=== PATIENT | female | born 1940 | race Caucasian/White ===

== ENCOUNTER 2020-11-20 14:14 | Observation (INO) | payer MEDICARE, MEDICAID ==
[~2020-11-20] VITALS: Ht 152.4 cm; Wt 81.8 kg
[2020-11-20 15:08] LABS: COLLECTION METHOD CLEAN CATCH
[2020-11-20 15:18] LABS: MUCOUS Present /lpf; PH 5 (5-8); SQUAMOUS EPITHELIAL 0-2 /hpf; URINE APPEARANCE Clear; URINE BACTERIA None Seen /hpf; URINE BILIRUBIN Negative (NEGATIVE); URINE BLOOD 1+ (NEGATIVE); URINE COLOR Yellow; URINE GLUCOSE Negative (NEGATIVE); URINE KETONE Negative (NEGATIVE); URINE LEUKOCYTE ESTERASE Trace (NEGATIVE); URINE NITRATE Negative (NEGATIVE); URINE PROTEIN(semi-quant) Negative (NEGATIVE); URINE RBC 0-2 /hpf; URINE UROBILINOGEN Negative (NEGATIVE)
[2020-11-20 15:37] LABS: BASO % 0.4 % (0.0-2.0); EOS # 0.1 (0.0-0.7); EOS % 0.5 % (0-4.0); GRAN # 6.4 (1.4-6.5); GRAN % 68.2 % (42.2-75.2); HEMATOCRIT 41.1 % (37.0-47.0); HEMOGLOBIN 13.3 g/dl (12.5-16.0); LYMPH % 21.4 % (20.0-51.0); MEAN CELL VOLUME 91 fl (80.0-100.0); MEAN CORPUSCULAR HEMOGLOBIN 30 pg (27.0-31.0); MEAN CORPUSCULAR HGB CONC 32 g/dl (33.0-37.0); MEAN PLATELET VOLUME 10.6 fl (7.4-10.4); MONO # 0.9 (0.1-0.6); MONO % 9.3 % (1.7-9.3); PLATELET COUNT 248 K/mm3 (130-400); REDCELL DISTRIBUTION WIDTH-CV 14.5 % (11.5-14.5)
[2020-11-20 15:57] LABS: ALBUMIN 3.7 gm/dL (3.5-5.0); BILIRUBIN,TOTAL 0.5 mg/dL (0.0-1.0); CALCIUM 8.6 mg/dL (8.4-10.2); CREATININE, serum 0.63 (0.52-1.25); POTASSIUM 4.2 mmol/L (3.4-5.0); TOTAL PROTEIN 6.7 gm/dL (6.4-8.2)
[2020-11-20] MEDS ORDERED: PRINIVIL10 MG PO (17:08)
[2020-11-20 17:31] LABS: TROPONIN-I < 0.012 ng/mL (0.000-0.035)
[2020-11-20] MEDS ORDERED: CEPHALEXIN500 M1 PO (17:49)
[2020-11-20 18:09] VITALS: BP 111/72; PULSE 77; TEMP 97.8
--- NOTE | 2020-11-20 18:40 | NUR ---
Patient admitted from the ED for Acute resp. failure. Report recieved from GERARDO Carrillo. Upon initial assessment upper lobes were clear to auscultation, coarse crackes noted in lower lobes. Patient is currenlty requiring 2L of O2 via nasal cannula. Normal S1 and S2 sounds present, radial and pedal pulses +2 bilaterally, bowel sounds present in all four quadrants. No skin issues noted. Patient A&O. IV located in right AC, flushes, no signs of complications. Med rec and admission paperwork completed. VSS. Patient C/O pain in her upper right quadrant that is exacerbated by taking deep breaths. States that it doesn't bother her while she is still. Patient denies any further pain, discomfort, or needs at this time. Call light in reach. Fall precautions in place.
--- NOTE | 2020-11-20 19:45 | NUR ---
Initial shift assessment done- denies pain at this time, INT to left AC, Up to BSC, voiding clear yellow urine- did just recieive IV lasix from offgoing nurse. Understands to call for assistance on Fall Risk. Denies SOB, o2 at 2L/nc. No other requests at this time.
--- NOTE | 2020-11-20 20:16 | NUR ---
assisted to bedside commode.
[2020-11-20 20:22] VITALS: BP 136/41; PULSE 81; TEMP 97.8
[2020-11-20 23:21] VITALS: BP 136/45; PULSE 65; TEMP 98.3
[2020-11-21 04:07] VITALS: BP 137/49; PULSE 66; TEMP 98.1
--- NOTE | 2020-11-21 05:57 | NUR ---
Quiet night- Up to BSC x4 during the night-- had 1600cc out urine since Lasix was given, o2 at 2.5L/nc with sats 97%, using I.S ,VSS
[2020-11-21 07:22] LABS: HEMATOCRIT 42.4 % (37.0-47.0); HEMOGLOBIN 13.6 g/dl (12.5-16.0); MEAN CELL VOLUME 93 fl (80.0-100.0); MEAN CORPUSCULAR HEMOGLOBIN 30 pg (27.0-31.0); MEAN CORPUSCULAR HGB CONC 32 g/dl (33.0-37.0); MEAN PLATELET VOLUME 10.5 fl (7.4-10.4); PLATELET COUNT 237 K/mm3 (130-400); RED BLOOD COUNT 4.58 M/mm3 (4.10-5.30); REDCELL DISTRIBUTION WIDTH-CV 14.6 % (11.5-14.5)
[2020-11-21 07:38] LABS: CALCIUM 8.5 mg/dL (8.4-10.2); CREATININE, serum 0.71 (0.52-1.25); POTASSIUM 4.1 mmol/L (3.4-5.0)
--- NOTE | 2020-11-21 08:09 | NUR ---
Scheduled medication given. Shift assessment preformed. Patient currently requiring 2.5 L of O2 via nasal cannula. Patient C/O "grabbing" pain in RUQ with movement and deep breathing. States that it is at a tolerable level and there is no need for interventions at this time. Patient denies any further pain, discomfort, or needs at this time. VSS. Call light in reach. Fall precautions in place.
--- NOTE | 2020-11-21 08:54 | NUR ---
Scheduled medications given. Shift assessment preformed. Fluids running as ordered. Patient states that the pain in her right flank is managable at a 3/10. Discussed with patient asking physicain about a long lasting pain medication. Patient A&O, denies N/V/D. Patient denies any further pain, discomfort, or further needsa at this time. Call light in reach.
[2020-11-21 11:23] VITALS: BP 134/48; PULSE 69; TEMP 97.6
--- NOTE | 2020-11-21 11:40 | NUR ---
Critical Ddimer of [address]408.[address] Fregoso.
--- NOTE | 2020-11-21 13:36 | NUR ---
Plan to return home. SW met with patient about care. Patient reports that she resides alone. Patient reports that her DTR Deisy Edwards works for [employer] and supports her care and helps with obtianing DME. Patient reports that she uses a Sit to stand walker. Patient denies needing any 02 but had CPAP but no supplies to continue using them. Educated patient about supplies however we may need to do some research on the patients behalf. Patient reports that she is winded while walking. Patient shares not she has 5/10 pain on her right lower abdomen. PCP is Dr. Burk and no other specialist. Patient shares that she obtains medicaions from [facility] in . WIll continue to follow care support.
[2020-11-21 15:49] VITALS: BP 129/52; PULSE 80; TEMP 97.7
--- NOTE | 2020-11-21 18:51 | NUR ---
Patient has had an ok day. CT preformed to rule out PE. PE not detected. PRN Tylenol given for pain in RUQ. Patient currently requiring 2.5 L of O2 via nasal cannula. Patient denies any further pain, discomfort, SOA, or needs at this time. Call light in reach. VSS. Fall precautions in place.
--- NOTE | 2020-11-21 20:46 | NUR ---
Initial shift assessment done- states ache to the right flank /,, VSS, o2 at 2.5L/nc with sats 94-95%. Requesting pudding as a snack tonight. Up to bathroom- steady on feet.
[2020-11-21 20:51] VITALS: BP 108/60; PULSE 85; TEMP 97.8
[2020-11-22 00:31] VITALS: BP 114/78; PULSE 72; TEMP 98.4
[2020-11-22 04:28] VITALS: BP 133/59; PULSE 74; TEMP 98.5
--- NOTE | 2020-11-22 06:18 | NUR ---
Slept fair during the night-- Up to bathroom x3 this shift, voiding clear yellow urine,, VSS, o2 sats at 92-95% on 2 L/nc
[2020-11-22 07:53] VITALS: BP 140/62; PULSE 75; TEMP 97.5
--- NOTE | 2020-11-22 11:21 | NUR ---
PT is recommending to consider home health. SW met with the patient to discuss their recommendation. The patient confirms that she plans on returning home. She states that she had home health in the past from [facility] and was not impressed. HUA discussed considering home health from a different agency. The patient states that her daughter has been talking about outpatient PT, but she does not know if she would be interested in that either. The patient would like some time to think about whether she would want to be set up with home health or outpatient PT. SW to continue to follow. *Discharge plan: home*
[2020-11-22] MEDS ORDERED: TYLENOL 500MG500 MG PO (11:40)
[2020-11-22] MEDS ORDERED: OMNICEF 300MG300 MG PO (11:42)
[2020-11-22] MEDS ORDERED: VENTOLIN0.09 MG IH (11:43)
[2020-11-22] MEDS ORDERED: ROXICODONE 55 MG/TAB PO ×2 (11:47→14:19)
[2020-11-22] MEDS ORDERED: ZITHROMAX 250M250 MG PO (11:47)
[2020-11-22 12:40] VITALS: BP 146/48; PULSE 82; TEMP 98.1
--- NOTE | 2020-11-22 12:59 | NUR ---
The hospitalist notified HUA that she is ready to d/c the patient and recommends home health. HUA met with the patient to update. The patient was open to home health and chose [facility]. HUA attempted to contact Paulette at [facility]. HUA left her a voicemail and faxed over the referral. HUA then contacted and updated the patient's daughter, Deisy, on the above. Deisy reports that the patient was set up at [facility] for outpatient PT and she was showing a lot of progress from that. She reports that they would probably prefer outpatient PT. HUA then met with the patient and had her daughter on speaker phone. HUA discussed home health vs outpatient PT. The patient and her daughter would prefer to do outpatient PT at [facility] in . HUA notified the PA. HUA contacted Daphnie at [facility] in and secured the patient an appointment on Sunday, 11/24, at 1300. HUA notified the community resource officer of the appointment. HUA to fax the patient's orders to [facility] in . No additional needs at this time.
--- NOTE | 2020-11-22 13:27 | NUR ---
Initial visit attempt; Patient using telephone, Scaffolder left a prayer card offering God's blessings from Scaffolder and a prayer of chilo.
--- NOTE | 2020-11-22 15:04 | NUR ---
PT AWAKE AND ALERT. NO S/S OF DISTRESS NOTICED. MEDICATIONS ADMINISTERED ORDERED. V/S STABLE. PT ATE HER MEALS. PT WORK WITH PHYSICAL THERAPIST. PT BEING DC AT THIS TIME. DC INSTRUCTIONS REVIEWED WITH PT. IV ACCESS REMOVED. PT QUESTIONS ANSWERED. PT TRYING TO GET A RIDE HOME HER DAUGHTER IS HAVING CAR TROUBLE. CONTROL ROOM HELPER MADE AWARE AND IS TRYING TO FIND TRANSPORTATION FOR THE PT TO GO HOME.
--- NOTE | 2020-11-24 09:04 | NUR ---
Medical rn community health received call from Deisy Bullard, patient's laurie, with concerns about home oxygen. Upon reviewing the chart, patient passed her exercise oximetry test and was not discharged with any home oxygen. I called Deisy back and shared that information. I also answered a few other questions she had and told her that if her mother has shortness of breath or any other concerns about her breathing, to return to the ED.
== END 2020-11-22 15:55 | disposition home or self-care (01) ==
LOC: COL.ER 14:14 → MEDICAL 17:07
PROVIDERS: Emergency Medicine; Physician Assistant; ADMIT Student in an Organized Health Care Education/Training Program
DX: J18.9 Pneumonia, unspecified organism (principal); J96.01 Acute respiratory failure with hypoxia; K57.90 Diverticulosis of intestine, part unspecified, without perforation or abscess without bleeding; I10 Essential (primary) hypertension; G47.33 Obstructive sleep apnea (adult) (pediatric); Z20.822 Contact with and (suspected) exposure to COVID-19; Z91.19 Patient's noncompliance with other medical treatment and regimen; Z79.82 Long term (current) use of aspirin; Z80.9 Family history of malignant neoplasm, unspecified; Z79.899 Other long term (current) drug therapy
CPT/HCPCS: 99222-AI; 99232-AI; A9284; G0378; J0696; J1650; J1940; J2270; J7030; Q9967